=== PATIENT | female | born 1985 | race Caucasian/White ===

== ENCOUNTER 2019-06-12 15:07 | Emergency (ER) | payer MEDICAID ==
[~2019-06-12] VITALS: Ht 160 cm; Wt 68.0 kg
[~2019-06-12 15:07] MED LIST: ALBU108A5 IN
[2019-06-12 16:20] VITALS: BP 114/68
[2019-06-12] MEDS ORDERED: cefTRIAXone SOD 1,000 MG VL IM ONE (19:15)
== END 2019-06-12 19:19 | disposition left against medical advice (07) ==
LOC: ER 15:07
DX: F11.10 Opioid abuse, uncomplicated (principal); L02.416 Cutaneous abscess of left lower limb; F17.210 Nicotine dependence, cigarettes, uncomplicated; J45.909 Unspecified asthma, uncomplicated